=== PATIENT | female | born 1980 | race Asian ===

== ENCOUNTER 2017-01-04 11:35 | Outpatient (CLI) | payer OTHER ==
[2017-01-04 12:32] LABS: BASOPHILS # (AUTO) 0.1 K/uL (0.00-0.22); BASOPHILS % (AUTO) 1.2 % (0.0-2.0); EOSINOPHILS # (AUTO) 0.1 K/uL (0-0.4); EOSINOPHILS % (AUTO) 0.8 % (0.0-4.0); HEMATOCRIT 42.3 % (36-48); HEMOGLOBIN 14.2 g/dL (12.0-16.0); LYMPHOCYTES # (AUTO) 2.5 K/uL (2.5-16.5); LYMPHOCYTES % (AUTO) 23.2 % (20.5-51.1); MEAN CORPUSCULAR HEMOGLOBIN 28 pg (27-31); MEAN CORPUSCULAR HGB CONC 34 g/dL (33-37); MEAN CORPUSCULAR VOLUME 85 fL (80-94); MONOCYTES # (AUTO) 0.8 K/uL (0.8-1.0); NEUTROPHILS # (AUTO) 7.2 K/uL (1.8-7.7); NEUTROPHILS % (AUTO) 67.8 % (42.2-75.2); PLATELET COUNT (AUTO) 343 K/uL (140-450); RED BLOOD CELL COUNT(AUTO) 5.01 MIL/uL (4.20-5.40); RED CELL DISTRIBUTION WIDTH 13.1 % (11.6-13.7); WHITE BLOOD COUNT (AUTO) 10.8 K/uL (4.8-10.8)
[2017-01-04 13:03] LABS: RAPID PLASMA REAGIN NON-REACTIVE (Non Reactiv)
[2017-01-05 09:09] LABS: HEPATITIS B SURFACE AB Non Reactive (.); RUBELLA AB IGG 1.92 index (Immune >0.99)
[2017-01-05 12:42] LABS: HIV 1/0/2 ABS, QUAL Non Reactive (Non Reactive)
== END 2017-01-04 17:12 | disposition home or self-care (01) ==
LOC: MLB 11:35
PROVIDERS: ATTEND Obstetrics & Gynecology
DX: O09.521 Supervision of elderly multigravida, first trimester (principal); Z3A.01 Less than 8 weeks gestation of pregnancy
CPT/HCPCS: 36415; 82947; 84703; 85025; 86592; 86702; 86706; 86762; 86886; 86900; 86901

== ENCOUNTER 2017-02-01 07:10 | Outpatient (CLI) | payer OTHER ==
[2017-02-01 07:57] LABS: GLUCOSE,FASTING GESTATIONAL 92 mg/dL (70-110)
[2017-02-01 08:37] LABS: BASOPHILS # (AUTO) 0.1 K/uL (0.00-0.22); BASOPHILS % (AUTO) 0.8 % (0.0-2.0); EOSINOPHILS # (AUTO) 0.1 K/uL (0-0.4); EOSINOPHILS % (AUTO) 1.1 % (0.0-4.0); HEMATOCRIT 43.5 % (36-48); HEMOGLOBIN 14.4 g/dL (12.0-16.0); LYMPHOCYTES # (AUTO) 2.1 K/uL (2.5-16.5); LYMPHOCYTES % (AUTO) 21.7 % (20.5-51.1); MEAN CORPUSCULAR HEMOGLOBIN 29 pg (27-31); MEAN CORPUSCULAR HGB CONC 33 g/dL (33-37); MEAN CORPUSCULAR VOLUME 87 fL (80-94); MONOCYTES # (AUTO) 0.3 K/uL (0.8-1.0); NEUTROPHILS % (AUTO) 73.4 % (42.2-75.2); PLATELET COUNT (AUTO) 358 K/uL (140-450); RED BLOOD CELL COUNT(AUTO) 4.99 MIL/uL (4.20-5.40); RED CELL DISTRIBUTION WIDTH 13.9 % (11.6-13.7); WHITE BLOOD COUNT (AUTO) 9.6 K/uL (4.8-10.8)
== END 2017-02-01 19:57 | disposition home or self-care (01) ==
LOC: MLB 07:10
PROVIDERS: ATTEND Obstetrics & Gynecology
DX: O09.521 Supervision of elderly multigravida, first trimester (principal); Z3A.11 11 weeks gestation of pregnancy
CPT/HCPCS: 36415; 82951; 85025

== ENCOUNTER 2017-02-08 16:44 | Outpatient (CLI) | payer OTHER | END 2017-02-08 20:09 | disposition home or self-care (01) | LOC: MUS 16:44 | PROVIDERS: ATTEND Obstetrics & Gynecology | PROC: BU46ZZZ Ultrasonography of Uterus (ICD-10-PCS; principal; 2017-02-08) | DX: O26.891 Other specified pregnancy related conditions, first trimester (principal) | CPT/HCPCS: 76801 ==

== ENCOUNTER 2017-02-15 09:40 | Inpatient (IN) | payer OTHER ==
[~2017-02-15] VITALS: Ht 160 cm; Wt 76.2 kg
[2017-02-15 09:44] VITALS: BP 134/106
[2017-02-15] MEDS ORDERED: PREN-380 PO (09:47)
--- NOTE | 2017-02-15 09:55 | NUR ---
Patient ambulatd to bed 07.
--- NOTE | 2017-02-15 09:56 | NUR ---
36/F BIB SELF C/O 12 WEEKS PREG,BLEEDING PER VAGINA & LOWER ABD PAIN X 2DAYS. DIAGNOSED WITH MISCARRIAGE. DENIES N/V/D; SKIN IS PINK/WARM/DRY; AAOX4 WITH EVEN AND STEADY GAIT; LUNGS CLEAR BL; HR EVEN AND REGULAR; PT DENIES ANY FEVER, CP, SOB AT THIS TIME; PATIENT STATES PAIN OF 10/10 AT THIS TIME; VSS; PATIENT POSITIONED FOR COMFORT; HOB ELEVATED; BEDRAILS UP X2; BED DOWN. ER MD MADE AWARE OF PT STATUS.
[2017-02-15 10:13] LABS: HEMATOCRIT 43.5 % (36-48); HEMOGLOBIN 14.3 g/dL (12.0-16.0); MEAN CORPUSCULAR HEMOGLOBIN 29 pg (27-31); MEAN CORPUSCULAR HGB CONC 33 g/dL (33-37); MEAN CORPUSCULAR VOLUME 87 fL (80-94); PLATELET COUNT (AUTO) 332 K/uL (140-450); RED CELL DISTRIBUTION WIDTH 13.7 % (11.6-13.7); WHITE BLOOD COUNT (AUTO) 14.8 K/uL (4.8-10.8)
[2017-02-15 10:17] LABS: APPEARANCE,URINE HAZY (CLEAR); BILIRUBIN,URINE NEGATIVE (NEGATIVE); BLOOD, URINE 3+ (NEGATIVE); COLOR,URINE RED (YELLOW); LEUKOCYTE ESTERASE ,URINE 2+ (NEGATIVE); NITRITE, URINE POSITIVE (NEGATIVE); PH,URINE 6.5 (5.0-9.0); PROTEIN,URINE 3+ (NEGATIVE); UGLUCOSE NEGATIVE (NEGATIVE)
[2017-02-15 10:24] LABS: ANION GAP 12.9 (8-16); CALCIUM 9.3 mg/dL (8.5-10.1); CARBON DIOXIDE 29.2 mmol/L (21-32); CREATININE 0.6 mg/dL (0.6-1.3); POTASSIUM 4.1 mmol/L (3.5-5.1)
[2017-02-15] MEDS ORDERED: NACL 0.9% 1,000 ML IV ONE ×2 (10:25→11:00)
[2017-02-15] MEDS ORDERED: MORPHINE SULFATE 4 MG/ML SYR IVP ONE (10:25)
[2017-02-15 10:27] LABS: BAND % (MANUAL) 5 % (0-8); LYMPHOCYTES % (MANUAL) 12 % (20-46); MONOCYTES % (MANUAL) 7 % (5-12); NEUTROPHILS % (MANUAL) 76 (43-65)
[2017-02-15 10:30] LABS: ALBUMIN 3.7 g/dL (3.4-5.0); TOTAL BILIRUBIN 0.6 mg/dL (0.0-1.0); TOTAL PROTEIN, SERUM 8.4 g/dL (6.4-8.2)
--- NOTE | 2017-02-15 10:30 | NUR ---
PT HAS LOWER ABDOMINAL PAIN 10/. GAVE MED PER MD ORDER. PT STILL HAS BLEEDING PER VAGINA; CHANGED PAD. ; REPORT ER MD.MD AWARE.
[2017-02-15] MEDS ORDERED: MORPHINE SULFATE 4 MG/ML SYR ONE (10:35)
[2017-02-15 11:27] LABS: RBC,URINE TOO NUMEROUS TO COUN /HPF (0-5)
[2017-02-15 11:28] LABS: BACTERIA,URINE 1-9 (FEW) /HPF (None Seen); SQUAMOUS EPITHELIAL CELL,UR 0-3 (FEW) /LPF (0-3 (FEW)); WBC,URINE NONE SEEN /HPF (0-5)
--- NOTE | 2017-02-15 11:48 | NUR ---
CALLED TO GIVE REPORT ; ZA GARDNER STATED WILL CALL BACK.
--- NOTE | 2017-02-15 11:49 | NUR ---
Patient appears to be resting comfortably in bed. NO PAIN NOTED AT THIS TIME.Vital Signs within normal limits. Respirations even and unlabored.WILL CONTINUE TO MONITOR.
--- NOTE | 2017-02-15 11:54 | NUR ---
GAVE REPORT TO [facility]A GARDNER
--- NOTE | 2017-02-15 11:55 | NUR ---
Patient will be admitted to care of DR Esther HURTADO. Admited to Med/Surg. Will go to room 104B. Belongings list completed. Report to [facility]A GARDNER.
--- NOTE | 2017-02-15 13:10 | NUR ---
PT ON UNIT. NO S/S OF ACUTE DISTRESS. PT DENIES PAIN. IV SITE PATENT AND INTACT. AAOX4. PT ORIENTED TO ROOM. CALL LIGHT WITHIN REACH. SAFETY MEASURES ENSURED. WILL CONTINUE TO MONITOR.
[2017-02-15 13:36] VITALS: BP 122/76
[2017-02-15 16:00] VITALS: BP 118/65
--- NOTE | 2017-02-15 17:05 | NUR ---
PT RESTING IN BED. NO S/S OF ACUTE DISTRESS. PT DENIES PAIN. CALL LIGHT WITHIN REACH. SAFETY MEASURES ENSURED. WILL CONTINUE TO MONITOR.
--- NOTE | 2017-02-15 19:16 | NUR ---
ENDORSED PLAN OF CARE TO NIGHT RN. PT REMAINS IN STABLE CONDITION
--- NOTE | 2017-02-15 19:20 | NUR ---
RECEIVED PT AAAX4 GOING TO OR FOR DILATATION AND CURETTAGE BY DR MIRANDA
[2017-02-15] MEDS ORDERED: MIDAZOLAM 2 MG/2 ML VIAL ONE (19:24)
[2017-02-15] MEDS ORDERED: fentaNYL 0.05 MG/ML VIAL ONE (19:24)
[2017-02-15] MEDS ORDERED: MEPERIDINE 25 MG/ML SYR ONE (19:25)
[2017-02-15] MEDS ORDERED: HYDROmorphone 1 MG/ML AMP IVP PRN (19:40)
[2017-02-15] MEDS ORDERED: MEPERIDINE 25 MG/ML SYR IVP PRN (19:40)
[2017-02-15] MEDS ORDERED: diphenhydrAMINE 50 MG/ML VIAL IVP PRN (19:40)
[2017-02-15] MEDS ORDERED: ONDANSETRON 4 MG/2 ML VIAL IVP PRN ×2 (19:40→20:00)
[2017-02-15] MEDS ORDERED: MORPHINE SULFATE 4 MG/ML SYR IM/IVP PRN (20:00)
[2017-02-15] MEDS ORDERED: ACETAMINOPHEN/CODEINE 300/30MG 1 TAB PO PRN (20:00)
[2017-02-15] MEDS ORDERED: IBUPROFEN 800 MG TAB PO PRN (20:00)
[2017-02-15 20:50] VITALS: BP 102/59
--- NOTE | 2017-02-15 20:50 | NUR ---
RECEIVED PT FROM OR VIA [facility] PT IS AAOX4 IV ON RT WRIST INFUSING WELL SMALL AMOUNT VAGINAL BLEED ON PAD PT IS ORIENTED TO THE FLOOR CALL LIGHT WITHIN REACH WILL BE MONITORING
[2017-02-15] MEDS: LACTATED RINGERS 1,000 ML IV SCH (21:13)
--- NOTE | 2017-02-15 22:47 | NUR ---
PT AMBULATES TO THE RESTROOM VOIDING WELL NOT DISTRESS NOTED IV ON RT WRIST INFUSING WELL SCAN VAGINAL BLEEDING
[2017-02-16] VITALS: BP 99/60
--- NOTE | 2017-02-16 01:27 | NUR ---
PT RESTING ON BED SLEEPING DENIES ANY PAIN OR DISCOMFORT.
[2017-02-16] MEDS: LACTATED RINGERS 1,000 ML IV SCH (03:59)
[2017-02-16 04:00] VITALS: BP 106/70
--- NOTE | 2017-02-16 04:00 | NUR ---
PT IS ASSISTED TO THE RESTROOM AMBULATORY DENIES ANY PAIN AND LIGHTLY VAGINAL BLEEDING
--- NOTE | 2017-02-16 05:59 | NUR ---
PT RESTING ON BED NOT DISTRESS NOTED VERY LIGHT VAGINAL BLEEDING, DENIES ANY PAIN
--- NOTE | 2017-02-16 06:29 | NUR ---
PT RESTING ON BED REMAIN STABLE AT THIS TIME IV ON RT WRIST INFUSING WELL
--- NOTE | 2017-02-16 07:05 | NUR ---
RECEIVED REPORT FROM NIGHT RN. PT RESTING IN BED. AAOX4. NO S/S OF ACUTE DISTRESS. PT STATES SHE HAS VOIDED AND PASSED GAS. MINIMAL BLEEDING NOTED. IV SITE PATENT AND INTACT. PT DENIES PAIN. CALL LIGHT WITHIN REACH. SAFETY MEASURES ENSURED. WILL CONTINUE TO MONITOR.
[2017-02-16 07:48] VITALS: BP 108/64
--- NOTE | 2017-02-16 09:23 | NUR ---
BREAKFAST TRAY DELIVERED. NO S/S OF ACUTE DISTRESS. PT DENIES PAIN. WILL CONTINUE TO MONITOR.
[2017-02-16 09:27] VITALS: BP 108/64
--- NOTE | 2017-02-16 10:16 | NUR ---
PT CLEARED FOR DISCHARGE. DISCHARGE INSTRUCTIONS PROVIDED. PT VERBALIZED UNDERSTANDING. IV TAKEN OUT TIP INTACT. PT DENIES PAIN. PT TOLERATING FOOD WELL. PT PASSED GAS AND VOIDED. NO S/S OF ACUTE DISTRESS. AWAITING RIDE WITH .
--- NOTE | 2017-02-16 10:18 | NUR ---
PATIENT HAS BEEN SCREENED AND CATEGORIZED LOW NUTRITION RISK. PATIENT WILL BE SEEN WITHIN 7 DAYS OF ADMISSION. 02/21/[address]
[2017-02-16] MEDS ORDERED: PROPOFOL 200 MG/20 ML VIAL IV ONE (10:29)
[2017-02-16] MEDS ORDERED: ONDANSETRON 4 MG/2 ML VIAL IVP ONE (10:29)
[2017-02-16] MEDS ORDERED: DEXAMETHASONE 4 MG/ML VIAL IVP ONE (10:29)
== END 2017-02-16 10:30 | disposition home or self-care (01) | DRG 770 ==
LOC: EEVIPCON 09:40 → MED 09:40 → MTU 11:40
PROVIDERS: ADMIT Obstetrics & Gynecology; ATTEND Obstetrics & Gynecology
PROC: 10D17ZZ Extraction of Products of Conception, Retained, Via Natural or Artificial Opening (ICD-10-PCS; principal; 2017-02-15 19:00)
DX: O02.1 Missed abortion (principal); Z88.1 Allergy status to other antibiotic agents; Z98.891 History of uterine scar from previous surgery
CPT/HCPCS: 36415; 80053; 81001; 85025; 86886; 86900; 86901; 87081; 87086; 96361; 96374; 99285; J1100; J2175; J2250; J2270; J2405; J2704; J3010; J7030; J7120

== ENCOUNTER 2017-04-15 07:17 | Emergency (ER) | payer OTHER ==
[~2017-04-15] VITALS: Ht 158.8 cm; Wt 73.1 kg
[2017-04-15 07:22] VITALS: BP 150/85
--- NOTE | 2017-04-15 07:27 | NUR ---
Patient ambulated to bed 4. RN evaluating patient at bedside.
--- NOTE | 2017-04-15 07:28 | NUR ---
6F BIB SELF C/O COUGHING, SORE THROAT, RUNNY NOSE X 4 DAYS. DENIES N/V/D; SKIN IS PINK/WARM/DRY; AAOX4 WITH EVEN AND STEADY GAIT; LUNGS CLEAR BL; HR EVEN AND REGULAR; PT DENIES ANY FEVER, CP, SOB, OR COUGH AT THIS TIME; PATIENT STATES PAIN OF 0/10 AT THIS TIME; VSS; PATIENT POSITIONED FOR COMFORT; HOB ELEVATED; BEDRAILS UP X2; BED DOWN. ER MD MADE AWARE OF PT STATUS.
--- NOTE | 2017-04-15 07:30 | NUR ---
ER MD DR AARON EVALUATING PT AT BEDSIDE.
[2017-04-15 07:46] VITALS: BP 137/97
--- NOTE | 2017-04-15 07:47 | NUR ---
Patient discharged with BP 137/97; DENIES HEADACHE OR DIZINESS AT THIS TIME; AWARE.. Written and verbal after care instructions given and explained. Patient alert, oriented and verbalized understanding of instructions. Ambulatory with steady gait. All questions addressed prior to discharge. ID band removed. Patient advised to follow up with PMD. Rx of AZITHROMYCIN given. Patient educated on indication of medication including possible reaction and side effects. Opportunity to ask questions provided and answered.
== END 2017-04-15 07:47 | disposition home or self-care (01) ==
LOC: MED 07:17
DX: J06.9 Acute upper respiratory infection, unspecified (principal); Z88.1 Allergy status to other antibiotic agents
CPT/HCPCS: 99283